=== PATIENT | female | born 1980 | race Caucasian/White ===

== ENCOUNTER 2016-08-08 08:05 | Emergency (ER) | payer MEDICAID, OTHER ==
[~2016-08-08] VITALS: Ht 152.4 cm; Wt 50.0 kg
[~2016-08-08 08:05] MED LIST: MIRTA15
[2016-08-08 08:47] VITALS: BP 134/71; PULSE 93; RESP 20; TEMP 98.1; O2SAT 99
[2016-08-08 09:40] VITALS: BP 127/72; PULSE 89; RESP 18; O2SAT 100
--- NOTE | 2016-08-08 09:53 | PD ---
HPI Chief Complaint: Related Problem Time Seen by Provider: 09:43 Travel History International Travel<30 days: No Contact w/Intl Traveler<30days: No Traveled to known affect area: No History of Present Illness HPI The patient was seen and examined in the presence of the nurse. This patient thinks that she is about 13 weeks . She has not had any care. She came today because she noticed a lump below her umbilicus and it became sore today. No vaginal discharge or bleeding. No fever or vomiting or diarrhea. Severity is mild. No alleviating factors. She says she took home tests that were positive. PFSH Past Medical History Arthritis: Yes Blood Disorders: Yes (FACTOR 5) Anxiety: Yes Depression: Yes Cancer: No Cardiovascular Problems: Yes Chemotherapy: No Endocrine: No Gastrointestinal Disorders: Yes Genitourinary: No Immune Disorder: No Musculoskeletal: Yes Neurologic: No Psychiatric: No Reproductive: Yes (ENDOMETRIOSIS) Respiratory: No Radiation Therapy: No Tetanus Vaccination: > 5 Years Influenza Vaccination: No ?: LMP: LATE 2015 : 4 Para: 2 Miscarriage: 2 : 0 Past Surgical History AICD: No Appendectomy: Yes Arteriovenous Shunt: No Gynecologic Surgery: Yes (R. OOPHORECTOMY ) Insulin Pump: No Joint Replacement: No Pacemaker: No Other Surgery: Yes (DIAGNOSTIC SURGERY R/T ENDOMETRIOSIS ) Social History Alcohol Use: Yes (RARELY) Tobacco Use: Yes (ONE PACK A DAY) Substance Use: No Allergies-Medications (Allergen,Severity, Reaction): Coded Allergies: No Known Allergies (Verified , 08/08/16) Reported Meds & Prescriptions Reported Meds & Active Scripts Active No Active Prescriptions or Reported Medications Review of Systems General / Constitutional: No: Fever Eyes: No: Visual changes HENT: No: Headaches Cardiovascular: No: Chest Pain or Discomfort Respiratory: No: Shortness of Breath Gastrointestinal: No: Abdominal Pain Genitourinary: Positive: Pelvic Pain, No: Dysuria Musculoskeletal: No: Pain Skin: No Rash Neurologic: No: Weakness Psychiatric: No: Depression Endocrine: No: Polydipsia Hematologic/Lymphatic: No: Easy Bruising Physical Exam Narrative I have reviewed the patient's electronic medical record. GENERAL: Well-nourished, well-developed patient in no apparent distress. SKIN: Warm and dry. HEAD: Atraumatic. Normocephalic. EYES: Pupils equal and round. No scleral icterus. No injection or drainage. ENT: No nasal bleeding or discharge. Mucous membranes pink and moist. NECK: Trachea midline. No JVD. CARDIOVASCULAR: Regular rate and rhythm. No murmur appreciated. RESPIRATORY: No accessory muscle use. Clear to auscultation. Breath sounds equal bilaterally. GASTROINTESTINAL: Abdomen soft, non-tender, nondistended. Hepatic and splenic margins not palpable. I can palpate a vague nodular area assisted from umbilicus to the pubic bone. Slightly tender. No erythema or fluctuance. No hernia detected MUSCULOSKELETAL: No obvious deformities. No clubbing. No cyanosis. No edema. NEUROLOGICAL: Awake and alert. No obvious cranial nerve deficits. Motor grossly within normal limits. Normal speech. PSYCHIATRIC: Appropriate mood and affect; insight and judgment normal. Pelvic: Cervix is closed without motion tenderness. No blood in the vault Data Data Last Documented VS Vital Signs Date Time Temp Pulse Resp B/P Pulse Ox O2 Delivery O2 Flow Rate FiO2 08/08/16 09:40 89 16 08/08/16 09:40 127/72 100 Room Air 08/08/16 08:47 98.1 MDM Medical Decision Making Medical Screen Exam Complete: Yes Emergency Medical Condition: Yes Medical Record Reviewed: Yes Differential Diagnosis Lymphadenopathy, hernia, ectopic Narrative Course I have reviewed the patient's electronic medical record. I did bedside transabdominal ultrasound. She has an intrauterine fetus with good heart beat and good movement I ruled out ectopic . There is no demise or miscarriage. Her next step should be to obtain care and OB follow-up Not sure exactly what that small palpable lump represents but superficial and not emergent Diagnosis Primary Impression: Pelvic pain affecting Additional Instructions: The patient was advised to follow up with their physician and return if they worsen. Obtain care Take a daily vitamin Med/Other Pt SpecificInfo: Other Scripts No Active Prescriptions or Reported Meds Disposition: DISCHARGE HOME Condition: Stable Kevin Matson MD Aug 08, 2016 09:53
[2016-08-08 12:00] VITALS: BP 117/80; PULSE 80; RESP 16; O2SAT 100
== END 2016-08-08 12:14 | disposition home or self-care (01) ==
LOC: NEPC 08:05
DX: O26.891 Other specified pregnancy related conditions, first trimester (principal); R10.2 Pelvic and perineal pain; F17.210 Nicotine dependence, cigarettes, uncomplicated
CPT/HCPCS: 99283

== ENCOUNTER 2016-09-25 15:28 | Inpatient (IN) | payer OTHER ==
[2016-09-25] VITALS (8 sets, daily range): BP systolic 91–126; BP diastolic 47–73; PULSE 56–74; RESP 16; TEMP 98.2–98.7
[2016-09-25] MEDS ORDERED: LACTATED RINGER'S 1000 ML INJ 1,000 ML IV PRN (16:32)
--- NOTE | 2016-09-25 16:32 | PD ---
HPI Chief Complaint "passed something" Date Seen: Sep 25, 2016 Time Seen: 16:15 Travel History International Travel<30 Days: No Contact w/Intl Traveler<30Days: No History of Present Illness HPI 36 year old at 20/5 weeks gestation. She presents with a sudden urge to "move my bowels". She went to the toilet and "passed something" vaginally, but did not look to see what it was. Since that time, she has vaginal bleeding and constant lower abdominal cramping. In addition, she feels like her stomach is harder than usual. She has a history of factor V leiden deficiency, and her mother froma stroke at age 52. She's had one miscarriage at 6 weeks in the past. History Past Medical History Narrative Medical Factor V Leiden deficiency endometriosis Obstetric History Obstetric History at 20/5 weeks gestation No care 1.) term, vaginal 2.) term, vaginal 3.) 6 weeks miscarriage 4.) current, no care Past Surgical History Narrative Surgical One ovary and tube removed for endometriosis Appendix removed for endometriosis Family History Narrative Family History Mother: stroke age 52 Social History Narrative Social History Smoking half PPD, was one PPD in first trimester Allergies-Medications (Allergen,Severity, Reaction): Coded Allergies: No Known Allergies (Verified , 08/08/16) Home Meds No Active Prescriptions or Reported Meds Review of Systems General / Constitutional: Weight Gain, No: Fever, Weight Loss, Chills Eyes: No: Diploplia, Blurred Vision, Visual changes, Pain HENT: No: Headaches, Vertigo, Lightheadedness Cardiovascular: No: Irregular Rhythm, Chest Pain or Discomfort, Tachycardia, Syncope Respiratory: No: Cough, Short of Breath, Wheezing Gastrointestinal: No: Nausea, Vomiting, Diarrhea, Abdominal Pain Genitourinary: No: Urgency, Frequency, Dysuria, Nocturia Musculoskeletal: Cramping, No: Limited ROM, Weakness, Edema Skin: No Rash, No Itching, No Dryness Neurologic: No: Weakness, Dizziness, Syncope, Focal Abnormalities, Coordination Problem, Headache Psychiatric: No: Anxiety, Depression Endocrine: No: Heat Intolerance, Cold Intolerance, Polydipsia, Polyuria Hematologic/Lymphatic: No Easy Bruising Physical Exam Narrative GENERAL: Well-nourished, well-developed patient. SKIN: Warm and dry. HEAD: Normocephalic and atraumatic. EYES: No scleral icterus. No injection or drainage. ENT: No nasal drainage noted. Mucous membranes pink. Airway patent. NECK: Supple, trachea midline. No JVD. CARDIOVASCULAR: Regular rate and rhythm without murmurs, gallops, or rubs. RESPIRATORY: Breath sounds equal bilaterally. No accessory muscle use. ABDOMEN/GI: Abdomen soft, non-tender, bowel sounds present, no rebound, no guarding Gravid to 20 weeks size GENITOURINARY: Dilatation: 3-4 cm Effacement: 6% Station: -3 Presentation: vertex Membranes: ruptured EXTREMITIES: No cyanosis or edema. BACK: Nontender without obvious deformity. No CVA tenderness. NEUROLOGICAL: Awake and alert. Motor and sensory grossly within normal limits. Five out of 5 muscle strength in all muscle groups. Normal speech. Data Data Vital Signs Reviewed: Yes Orders Vital Signs (Adult) .ON ADMISSION (09/25/16 16:03) ^ Labor Status (09/25/16 16:03) ^ Hydration (09/25/16 16:03) Ob Poc Ultrasound (09/25/16 ) [facility] Medical Record Reviewed: Yes Interpretation(s) 36 year old at 20/5 weeks gestation, no care, presents with cervical dilation, rupture of membranes. POC ultrasound showing viable fetus in vertex position, official OB ultrasound and report in progress. - Admit to labor delivery, expect vaginal delivery of non-viable fetus - Pain management, IV fluids - Speculum exam, OB ultrasound - Emotional support, counseling Scripts No Active Prescriptions or Reported Felix Lowe MD R2 Sep 25, 2016 16:31 cervical dilation, rupture of membranes. POC ultrasound showing viable fetus in vertex position, official OB ultrasound and report in progress. - Admit to labor delivery, expect vaginal delivery of non-viable fetus - Pain management, IV fluids - Speculum exam, OB ultrasound - Emotional support, counseling Scripts No Active Prescriptions or Reported Felix Lowe MD R2 Sep 25, 2016 16:31
--- NOTE | 2016-09-25 16:44 | HHI.HP ---
History & Physical H&P HPI HPI Chief Complaint "passed something" Date Seen: Sep 25, 2016 Time Seen: 16:15 Travel History International Travel<30 Days: No Contact w/Intl Traveler<30Days: No History of Present Illness HPI 36 year old at 20/5 weeks gestation. She presents with a sudden urge to "move my bowels". She went to the toilet and "passed something" vaginally, but did not look to see what it was. Since that time, she has vaginal bleeding and constant lower abdominal cramping. In addition, she feels like her stomach is harder than usual. She has a history of factor V leiden deficiency, and her mother froma stroke at age 52. She's had one miscarriage at 6 weeks in the past. History (Limited) History Past Medical History Narrative Medical Factor V Leiden deficiency endometriosis Obstetric History Obstetric History at 20/5 weeks gestation No care 1.) term, vaginal 2.) term, vaginal 3.) 6 weeks miscarriage 4.) current, no care Past Surgical History Narrative Surgical One ovary and tube removed for endometriosis Appendix removed for endometriosis Family History Narrative Family History Mother: stroke age 52 Social History Narrative Social History Smoking half PPD, was one PPD in first trimester Allergies-Medications Allergies-Medications (Allergen,Severity, Reaction): Coded Allergies: No Known Allergies (Verified , 08/08/16) Home Meds No Active Prescriptions or Reported Meds ROS Review of Systems General / Constitutional: Weight Gain, No: Fever, Weight Loss, Chills Eyes: No: Diploplia, Blurred Vision, Visual changes, Pain HENT: No: Headaches, Vertigo, Lightheadedness Cardiovascular: No: Irregular Rhythm, Chest Pain or Discomfort, Tachycardia, Syncope Respiratory: No: Cough, Short of Breath, Wheezing Gastrointestinal: No: Nausea, Vomiting, Diarrhea, Abdominal Pain Genitourinary: No: Urgency, Frequency, Dysuria, Nocturia Musculoskeletal: Cramping, No: Limited ROM, Weakness, Edema Skin: No Rash, No Itching, No Dryness Neurologic: No: Weakness, Dizziness, Syncope, Focal Abnormalities, Coordination Problem, Headache Psychiatric: No: Anxiety, Depression Endocrine: No: Heat Intolerance, Cold Intolerance, Polydipsia, Polyuria Hematologic/Lymphatic: No Easy Bruising Physical Exam Physical Exam Narrative GENERAL: Well-nourished, well-developed patient. SKIN: Warm and dry. HEAD: Normocephalic and atraumatic. EYES: No scleral icterus. No injection or drainage. ENT: No nasal drainage noted. Mucous membranes pink. Airway patent. NECK: Supple, trachea midline. No JVD. CARDIOVASCULAR: Regular rate and rhythm without murmurs, gallops, or rubs. RESPIRATORY: Breath sounds equal bilaterally. No accessory muscle use. ABDOMEN/GI: Abdomen soft, non-tender, bowel sounds present, no rebound, no guarding Gravid to 20 weeks size GENITOURINARY: Dilatation: 3-4 cm Effacement: 6% Station: -3 Presentation: vertex Membranes: ruptured EXTREMITIES: No cyanosis or edema. BACK: Nontender without obvious deformity. No CVA tenderness. NEUROLOGICAL: Awake and alert. Motor and sensory grossly within normal limits. Five out of 5 muscle strength in all muscle groups. Normal speech. Data Data Data Vital Signs Reviewed: Yes Orders Vital Signs (Adult) .ON ADMISSION (09/25/16 16:03) ^ Labor Status (09/25/16 16:03) ^ Hydration (09/25/16 16:03) Ob Poc Ultrasound (09/25/16 ) MDM MDM Medical Record Reviewed: Yes Interpretation(s) 36 year old at 20/5 weeks gestation, no care, presents with cervical dilation, rupture of membranes. POC ultrasound showing viable fetus in vertex position, official OB ultrasound and report in progress. - Admit to labor delivery, expect vaginal delivery of non-viable fetus - Pain management, IV fluids - Speculum exam, OB ultrasound - Emotional support, counseling Seen and discussed with Felix Stephens MD R2 Sep 25, 2016 16:44
[2016-09-25] MEDS ORDERED: CITRIC ACID-SODIUM CITRATE LIQ 30 ML UDC PO SCH (16:45)
[2016-09-25] MEDS ORDERED: LIDOCAINE HCL 1% 50 ML VIAL INFIL PRN (16:45)
[2016-09-25] MEDS ORDERED: OXYTOCIN 30 UNITS-500ML PREMIX 500 ML IV ONE (16:45)
[2016-09-25] MEDS ORDERED: SODIUM CHLORID 0.9% 500 ML INJ 500 ML IV PRN (16:45)
[2016-09-25] MEDS ORDERED: MINERAL OIL 10 ML VIAL TOPICAL PRN (16:45)
[2016-09-25] MEDS ORDERED: LIDOCAINE HCL 1% 50 ML VIAL I-DERMAL PRN (16:45)
[2016-09-25] MEDS ORDERED: SODIUM CHLOR 0.9% 1000 ML INJ 1,000 ML IV PRN (16:52)
--- NOTE | 2016-09-25 17:18 | PD ---
History of Present Illness Date Seen: Sep 25, 2016 History of Present Illness This patient is a 36-year-old white female A1 who is approximately 20 weeks gestation by her LMP but has no care to date due to insurance problems she was doing well until she noticed today increased pressure in the abdomen or belly getting hard and that she felt like she had to move her bowels felt pressure and then went to the bathroom and passed something vaginally. Since that time she's had fat and vaginal bleeding and abdominal pain. She states that when she passed what ever it was in the path room she did not look at it she just ran On OB ED patient was examined and noted to have the uterus at the umbilicus 1+ tender. The speculum exam done shows gross ruptured membranes, membranes noted at the cervical os. No active bleeding noted. Digital exam reveals cervix to be 3-4 cm dilated and 60%/ -3 with a palpable presenting part. Ultrasound was done at the bedside which showed a vertex fetus is approximately 20 week size with no amniotic fluid around the baby and a fundal placenta. Cardiac motion was noted with rate of 130. OB diagnostic did came and an ultrasound which gives us a estimated weight of 344 g and a gestational age of 20 weeks and 1 day positive cardiac motion noted Impression is premature rupture the membranes at approximately 20 weeks ' gestation with onset of labor Plan is to admit the patient cover with antibiotics check her lab, blood type , and basically await her to continue her natural process that started started that she should deliver within the next few hours. The patient developed a temperature CBC shows a greatly elevated white count then the uterine evacuation as indicated and would proceed with Cytotec to evacuate the uterus Isac Ruiz II, MD Sep 25, 2016 17:18
[2016-09-25 17:55] LABS: AMPHETAMINE, URINE NEG (NEG); BARBITURATES, URINE NEG (NEG); COCAINE, URINE NEG (NEG)
[2016-09-25] MEDS: ceFAZolin 2 GM PREMIX 50 ML IV SCH (18:04)
[2016-09-25 18:22] LABS: AUTOMATED NEUTROPHIL # 8.9 TH/MM3 (1.8-7.7); BASOPHIL % 0.3 % (0.0-2.0); EOSINOPHIL % 0.3 % (0.0-4.0); HEMATOCRIT 32.9 % (35.0-46.0); HEMO FLAGS DIFF FINAL; LYMPH % 10.1 % (9.0-44.0); LYMPHOCYTE # 1.1 TH/MM3 (1.0-4.8); MEAN CELL VOLUME 95.7 FL (80.0-100.0); MEAN CORPUSCULAR HEMOGLOBIN 33.1 PG (27.0-34.0); MEAN CORPUSCULAR HGB CONC 34.6 % (32.0-36.0); MONO % 4.3 % (0.0-8.0); PLATELET COUNT 177 TH/MM3 (150-450); RED BLOOD COUNT 3.44 MIL/MM3 (4.00-5.30); RED CELL DISTRIBUTION WIDTH 12.8 % (11.6-17.2); WHITE BLOOD COUNT 10.5 TH/MM3 (4.0-11.0)
[2016-09-25 22:45] LABS: ALKALINE PHOSPHATASE 58 U/L (45-117); TOTAL BILIRUBIN ADULT 0.5 MG/DL (0.2-1.0)
[2016-09-25 23:01] LABS: ALT (GPT) 25 U/L (10-53); ANION GAP 12 MEQ/L (5-15); AST (GOT) 42 U/L (15-37); BICARBONATE 20.7 MEQ/L (21.0-32.0); BLOOD UREA NITROGEN 6 MG/DL (7-18); CHLORIDE 108 MEQ/L (98-107); GLOMERULAR FILTRATION RATE 121 ML/MIN (>89); SODIUM (NA) 141 MEQ/L (136-145)
[2016-09-25 23:04] LABS: POTASSIUM 4.1 MEQ/L (3.5-5.1)
[2016-09-26] VITALS (43 sets, daily range): BP systolic 81–108; BP diastolic 40–71; PULSE 55–115; RESP 16–20; TEMP 98.1–98.7; O2SAT 98–100
--- NOTE | 2016-09-26 00:09 | PD.LABORPN ---
Subjective Subjective Pt having LAP , no change in vaginal bleeding cx- 4/80/-2 /vtx US - + CM rate 60-120 varying Plan to continue current care until she advances her cx dilation or forces our hand by becoming febrile Objective Vital Signs Vital Signs Date Time Temp Pulse Resp B/P Pulse Ox O2 Delivery O2 Flow Rate FiO2 09/25/16 20:49 16 09/25/16 20:48 59 97/47 09/25/16 19:15 58 16 91/60 09/25/16 19:15 98.7 09/25/16 18:31 56 95/55 09/25/16 18:00 74 126/73 09/25/16 17:58 98.2 09/25/16 17:30 70 109/64 09/25/16 17:04 71 101/68 Objective Pelvic Exam: Cervix: [-] Dilatation: [-4] Effacement: [-80] Station: [-2] Presentation: [vtx-] Membranes: [ ruptured] Uterine Contractions: [yes-] FHT's: v] Baseline: [-] 60-120 Assessment/Plan Assessment and Plan PPROM / PTL at 20 wks continue plan of care stated previously Isac Ruiz II, MD Sep 26, 2016 00:09
[2016-09-26] MEDS: LACTATED RINGER'S 1000 ML INJ 1,000 ML IV SCH ×3 (00:32→08:32)
[2016-09-26] MEDS ORDERED: fentaNYL 2MCG-BUPIV 0.125% INJ 100 ML ONE (01:50)
[2016-09-26] MEDS: ceFAZolin 2 GM PREMIX 50 ML IV SCH ×2 (01:58→10:00)
[2016-09-26] MEDS ORDERED: NO SYSTEM NARCOTICS XX PRN (02:45)
[2016-09-26] MEDS ORDERED: DO NOT ADMINISTER ANTICOAGULANTS XX PRN (02:45)
[2016-09-26] MEDS ORDERED: fentaNYL 2MCG-BUPIV 0.125% 100 ML EPIDURAL SCH (02:45)
[2016-09-26] MEDS ORDERED: ePHEDrine/NS 25 MG/5 ML SYR IV PRN (02:45)
[2016-09-26] MEDS ORDERED: OXYTOCIN 30 UNITS-500ML PREMIX 500 ML ONE (07:08)
[2016-09-26] MEDS ORDERED: MISOPROSTOL 200 MCG TAB ONE ×2 (07:40→08:43)
--- NOTE | 2016-09-26 07:54 | PD.OB.DELI ---
Delivery Date: Sep 26, 2016 Anesthesia: Epidural Episiotomy: None Vaginal Delivery: Normal Presentation: Occiput anterior Nuchal Cord: None One Minute : 1 (fht) Five Minute : 1 (fht) Ten Minute : 1 (fht) Placenta: Spontaneous delivery, Intact, 3 vessel cord Additional Information PPROM with labor at 20-1/7 weeks gestation. Apgars 08/06/. Nonviable. supervised by Deepa Martin MD R2 Sep 26, 2016 07:54
[2016-09-26] MEDS ORDERED: oxyCODONE/ACETAMINOPHEN 5 MG/325 MG TAB PO PRN ×2 (08:00)
[2016-09-26] MEDS ORDERED: DOCUSATE SODIUM 50 MG/SENNA 8.6 MG TAB PO PRN (08:00)
[2016-09-26] MEDS ORDERED: ALUMINUM/MAGNESIUM/SIMETH 30 ML CUP PO PRN (08:00)
[2016-09-26] MEDS ORDERED: SODIUM CHLORIDE 0.9% FLUSH 5 ML FLUSH IV PRN (08:00)
[2016-09-26] MEDS ORDERED: ACETAMINOPHEN 325 MG TAB PO PRN (08:00)
[2016-09-26] MEDS ORDERED: WITCH HAZEL 50%/GLYCERIN 12.5% 40 PAD JAR TOPICAL PRN (08:00)
[2016-09-26] MEDS ORDERED: IBUPROFEN 600 MG TAB PO PRN (08:00)
[2016-09-26] MEDS ORDERED: ONDANSETRON ODT 4 MG TAB PO PRN (08:00)
[2016-09-26] MEDS ORDERED: ZOLPIDEM TARTRATE 5 MG TAB PO PRN (08:00)
[2016-09-26] MEDS ORDERED: BENZOCAINE 20% TOPICAL SPRAY 60 ML CAN TOPICAL PRN (08:00)
[2016-09-26] MEDS ORDERED: MISOPROSTOL 200 MCG TAB PR ONE (08:45)
--- NOTE | 2016-09-26 08:59 | PD.LABORPN ---
Subjective Subjective OB attending note This patient delivered a nonviable 20 wk female fetus over an intact perineum, weight less than 500 g, 1 and 1 and 1 , baby born with heartbeat but nothing else, placenta delivered spontaneously intact. In a pathology is visit with the patient and discussed all the possibilities as far as care or palliative care for this baby, and parents understand that the baby is too early for survival Objective Vital Signs Vital Signs Date Time Temp Pulse Resp B/P Pulse Ox O2 Delivery O2 Flow Rate FiO2 09/26/16 08:28 74 108/62 09/26/16 08:14 70 105/71 09/26/16 07:57 74 106/53 09/26/16 07:55 20 09/26/16 07:30 71 100 09/26/16 07:25 77 100 09/26/16 07:20 75 100 09/26/16 07:15 75 100 09/26/16 07:10 98 09/26/16 07:10 66 09/26/16 07:05 70 09/26/16 07:05 98 09/26/16 07:00 98 09/26/16 07:00 68 09/26/16 06:55 68 98 09/26/16 06:50 72 98 09/26/16 06:45 68 98 09/26/16 06:40 67 98 09/26/16 06:35 69 98 09/26/16 06:31 66 90/49 09/26/16 06:30 67 98 09/26/16 06:30 16 09/26/16 06:03 62 89/40 09/26/16 06:02 98.6 16 09/26/16 05:31 94/48 09/26/16 05:31 71 16 09/26/16 05:03 72 91/47 09/26/16 05:02 16 09/26/16 04:31 16 09/26/16 04:31 78 88/59 09/26/16 04:01 66 81/51 09/26/16 04:00 16 09/26/16 03:31 66 92/45 09/26/16 03:30 16 09/26/16 03:01 98.5 09/26/16 03:01 16 09/26/16 03:00 64 87/49 09/26/16 02:46 16 09/26/16 02:46 69 93/45 09/26/16 02:30 71 16 88/49 09/26/16 02:24 72 87/49 09/26/16 02:18 92/44 09/26/16 02:18 69 18 09/26/16 02:13 71 92/46 09/26/16 02:08 115 104/58 09/26/16 02:07 18 09/26/16 01:57 18 09/26/16 01:54 63 92/47 09/26/16 01:50 18 Objective Isac Ruiz II, MD Sep 26, 2016 08:59
[2016-09-26] MEDS ORDERED: SODIUM CHLORIDE 0.9% FLUSH 5 ML FLUSH IV SCH (09:00)
--- NOTE | 2016-09-26 09:40 | HHI.DCPOC ---
Discharge Care Plan Diagnosis: (1) delivery of previable fetus Goals to Promote Your Health * To prevent worsening of your condition and complications * To maintain your health at the optimal level Directions to Meet Your Goals Take your medications as prescribed Follow your dietary instruction Follow activity as directed Keep your appointments as scheduled Take your immunizations and boosters as scheduled If your symptoms worsen call your PCP, if no PCP go to Urgent Care Center or Emergency Room Smoking is Dangerous to Your Health. Avoid second hand smoke Call the 24-hour hour crisis hotline for domestic abuse at Felix Cruz MD R2 Sep 26, 2016 09:40
[2016-09-26] MEDS ORDERED: DIPHTH/TETANUS/ACEL PERTUSSIS (BOOSTER) 0.5 ML VIAL/PFS IM ONE (16:00)
[2016-09-26] MEDS ORDERED: MEASLES, MUMPS, RUBELLA VACCINE 0.5 ML VIAL SQ ONE (16:00)
[2016-09-29 10:52] LABS: BATH SALTS (MDPV) UR NEG (NEG); ECSTASY (MDMA) UR NEG (NEG); HEROIN (6-ACETYLMORPHINE) UR NEG (NEG); K2 SPICE UR NEG (NEG); OBMETHADONE UR NEG (NEG); OXYCODONE (PERCODAN) NEG (NEG); PHENCYCLIDINE URINE NEG (NEG)
== END 2016-09-26 11:43 | disposition home or self-care (01) | DRG 775 ==
LOC: HOBED 15:28 → H2EA 16:33 → OBSVTOIN 16:35
PROVIDERS: ADMIT Obstetrics & Gynecology Maternal & Fetal Medicine; ATTEND Obstetrics & Gynecology Maternal & Fetal Medicine
PROC: 10E0XZZ Delivery of Products of Conception, External Approach (ICD-10-PCS; principal; 2016-09-26)
PROC: 00HU33Z Insertion of Infusion Device into Spinal Canal, Percutaneous Approach (ICD-10-PCS; 2016-09-26)
PROC: 3E0R3CZ (ICD-10-PCS; 2016-09-26)
DX: O99.12 Other diseases of the blood and blood-forming organs and certain disorders involving the immune mechanism complicating childbirth (principal); D68.51 Activated protein C resistance; O42.912 Preterm premature rupture of membranes, unspecified as to length of time between rupture and onset of labor, second trimester; O99.334 Smoking (tobacco) complicating childbirth; F17.210 Nicotine dependence, cigarettes, uncomplicated; Z3A.20 20 weeks gestation of pregnancy; Z37.0 Single live birth; O09.522 Supervision of elderly multigravida, second trimester; O09.32 Supervision of pregnancy with insufficient antenatal care, second trimester
CPT/HCPCS: 76805; 76937; 80053; 80307; 85025; 86850; 86900; 86901; 88305; 88307; 99285; G0481; J0690; J2590; J3010; J7120